=== PATIENT | male | born 1940 | race Caucasian/White ===

== ENCOUNTER 2022-07-16 12:26 | Inpatient (IN) ==
[2022-07-16] MEDS ORDERED: HYDROmorphone 0.5 MG/0.5 ML SYRINGE IV ONE ×2 (12:51→12:57)
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
[2022-07-16 13:12] LABS: POC Calcium, Ionized 1.18 (1.16-1.32); POC Creatinine 1.9 (0.6-1.2); POC Potassium 5.1 (3.3-5.1)
[2022-07-16] MEDS ORDERED: HYDROmorphone 1 MG/ML SYRINGE IV ONE (13:25)
[2022-07-16] MEDS ORDERED: HYDROmorphone PCA 30 MG/30 ML PCA.VIAL IV PRN (13:33)
--- NOTE | 2022-07-16 13:48 | XRay Report ---
CLINICAL INFORMATION: Trauma COMPARISON: 07/13/2022 FINDINGS: Moderately comminuted oblique fracture of the proximal right femoral diaphysis appreciated. Fracture apex is angulated 40 degrees posteriorly. The distal fragment is displaced one shaft width posteriorly with respect to the proximal fragment. Sacroiliac and hip joints are normal in width and alignment without arthritic change. There is no fracture or osseous abnormality. IMPRESSION: Oblique, angulated and displaced fracture of the proximal right femoral diaphysis Interpreted and Authenticated by: Rohit Anglin 07/16/22
--- NOTE | 2022-07-16 13:49 | XRay Report ---
CLINICAL INFORMATION: Trauma COMPARISON: 07/13/2022 FINDINGS: Moderately comminuted oblique fracture of the proximal right femoral diaphysis appreciated. Fracture apex is angulated 40 degrees posteriorly. The distal fragment is displaced one shaft width posteriorly with respect to the proximal fragment. Right hip and right SI joint are unremarkable. Mild patellofemoral and tibiofemoral degeneration noted. There is no fracture or osseous abnormality. IMPRESSION: Oblique, angulated and displaced fracture of the proximal right femoral diaphysis Interpreted and Authenticated by: Rohit Anglin 07/16/22
[2022-07-16 13:55] LABS: Basophils # (Auto) 0.02 K/mcL (0.00-0.30); Basophils % (Auto) 0.4 % (0.0-2.0); Eosinophils # (Auto) 0.01 K/mcL (0.00-0.70); Eosinophils % (Auto) 0.2 % (0.0-7.0); Hematocrit 36.8 % (40.1-51.0); Hemoglobin 12.5 g/dL (13.7-17.5); Lymphocytes # (Auto) 0.85 K/mcL (1.50-4.80); Lymphocytes % (Auto) 15.3 % (15.5-49.0); Mean Cell Volume 92.7 fL (80.0-100.0); Mean Platelet Volume 9.1 fL (8.8-12.5); Monocytes # (Auto) 0.33 K/mcL (0.10-0.90); Monocytes % (Auto) 5.9 % (1.0-12.0); Neutrophils % (Auto) 77.8 % (38.0-78.0); Platelet Count 211 K/mcL (140-440); RBC 3.97 M/mcL (4.63-6.08); Red Cell Distribution Width 13.2 % (11.5-14.5); WBC 5.6 K/mcL (4.5-11.0)
[2022-07-16 14:05] LABS: INR 1.1 (0.9-1.1); Prothrombin Time 14.6 sec (11.9-14.5)
--- NOTE | 2022-07-16 14:28 | XRay Report ---
CLINICAL INFORMATION: Preop COMPARISON: 03/21/2021 TECHNIQUE: Portable FINDINGS: The heart size, mediastinum and pulmonary vessels are unremarkable. The lungs are clear. There are no effusions. The bones and soft tissues are within normal limits. IMPRESSION: Normal chest. Interpreted and Authenticated by: Rohit Anglin 07/16/22
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
[2022-07-16 15:27] LABS: ALT/SGPT 17 U/L (<40); AST/SGOT 27 U/L (<40); Albumin 4.2 gm/dL (3.2-5.2); Albumin/Globulin Ratio 1.8 (1.0-2.3); Alkaline Phosphatase 52 U/L (39-117); Bilirubin,Total 0.2 mg/dL (0.1-1.0); Blood Urea Nitrogen 52 mg/dL (8-23); Calcium 9.6 mg/dL (8.6-10.4); Carbon Dioxide 23 mmol/L (22-30); Chloride 101 mmol/L (96-108); Globulin 2.3 gm/dL (2.2-3.7); Glomerular Filtration Rate 39; Glucose 130 mg/dL (70-105)
[2022-07-16] MEDS ORDERED: IPRATROPIUM/ALBUTEROL 3 ML AMPUL.NEB NEB PRN (15:30)
[2022-07-16] MEDS ORDERED: MAGNESIUM SULFATE 2 GM/50 ML BAG IV PRN (15:30)
[2022-07-16] MEDS ORDERED: DEXTROSE 50% 50 ML VIAL IV PRN (15:30)
[2022-07-16] MEDS ORDERED: DEXTROSE 31 GM ORAL.SUSP PO PRN (15:30)
[2022-07-16] MEDS ORDERED: POLYETHYLENE GLYCOL 3350 17 GM PACKET PO PRN (15:30)
[2022-07-16] MEDS ORDERED: POTASSIUM CHLORIDE 20 MEQ TABLET PO PRN ×2 (15:30)
[2022-07-16] MEDS ORDERED: hydrALAZINE 20 MG/ML VIAL IV PRN (15:30)
[2022-07-16] MEDS ORDERED: ACETAMINOPHEN 325 MG TABLET PO PRN (15:30)
[2022-07-16] MEDS ORDERED: POTASSIUM CHLORIDE 40 MEQ in DEXTROSE 5% IN WATER 500 ML IV PRN (15:30)
[2022-07-16] MEDS ORDERED: ONDANSETRON 4 MG/2 ML VIAL IV PRN (15:30)
[2022-07-16] MEDS ORDERED: SENNOSIDES 1 TABLET PO PRN (15:30)
[2022-07-16] MEDS: morphine 4 MG/ML VIAL IV PRN ×3 (16:19→23:59)
[2022-07-16] MEDS: 0.9 % SODIUM CHLORIDE 1,000 ML IV SCH (16:20)
[2022-07-16] MEDS: INSULIN LISPRO 1 UNIT/0.01 ML UNIT SQ SCH ×2 (17:11→21:30)
[2022-07-16] MEDS ORDERED: ceFAZolin 2 GM in DEXTROSE 5% IN WATER 50 ML IV SCH (18:00)
[2022-07-16] MEDS ORDERED: LORazepam 2 MG/ML VIAL IV ONE (18:21)
[2022-07-16] MEDS ORDERED: LORazepam 2 MG/ML VIAL ONE (18:24)
[2022-07-16] MEDS ORDERED: GADOBENATE DIMEGLUMINE 15 ML/VIAL IV ONE (19:51)
[2022-07-16] MEDS ORDERED: METHOCARBAMOL 1,000 MG/10 ML VIAL ONE (21:13)
[2022-07-16] MEDS: METHOCARBAMOL 1,000 MG/10 ML VIAL IV PRN (21:21)
[2022-07-16] MEDS: 0.9 % SODIUM CHLORIDE 10 ML SYRINGE IV SCH (21:30)
[2022-07-16] MEDS: DOCUSATE SODIUM 100 MG CAPSULE PO SCH (21:30)
[2022-07-16] MEDS: oxyCODONE/APAP 5/325MG TABLET PO PRN (21:33)
[2022-07-17] MEDS: 0.9 % SODIUM CHLORIDE 1,000 ML IV SCH (00:20)
[2022-07-17] MEDS: oxyCODONE/APAP 5/325MG TABLET PO PRN ×3 (01:12→15:39)
[2022-07-17] MEDS: morphine 4 MG/ML VIAL IV PRN ×3 (03:12→13:26)
[2022-07-17] MEDS ORDERED: METHOCARBAMOL 1,000 MG/10 ML VIAL ONE (05:02)
[2022-07-17] MEDS: METHOCARBAMOL 1,000 MG/10 ML VIAL IV PRN ×2 (05:04→13:26)
[2022-07-17] MEDS: 0.9 % SODIUM CHLORIDE 10 ML SYRINGE IV SCH ×3 (05:05→20:38)
--- NOTE | 2022-07-17 06:29 | Orthopedic Progress Note ---
SUBJECTIVE Subjective Patient information: Note initiated : 07/17/22 at 6:26 am Service Date, if different from initiated Date: [] Patient: Amor Rodriguez 82 y/o M admitted on 07/16/22 for right hip fracture. Chief Complaint: [] Constitutional Vitals: Vital Signs Temp Pulse Resp BP Pulse Ox O2 Del Method 99.2 F H 104 H 16 140/63 91 07/17/22 02:28 07/17/22 02:28 07/17/22 02:28 07/17/22 02:28 07/17/22 02:28 07/17/22 02:28 Period Temp Pulse Resp BP Sys/Pillai Pulse Ox O2 Del Method O2 Flow Rate Last 24 Hr 97.0 F-99.7 F 72-104 16-20 109-146/44-121 91-100 Room Air-Room Air Intake and Output 07/16/22 07/17/22 07/17/22 19:59 03:59 11:59 Intake Total 0 1000 150 Output Total 1425 Balance 0 -425 150 Weight 175 lb 172 lb 3.2 oz Intake & Output: Intake & Output 07/16/22 07/17/22 07/17/22 19:59 03:59 11:59 Intake Total 0 1000 150 Output Total 1425 Balance 0 -425 150 Weight 175 lb 172 lb 3.2 oz Intake: IV 1000 Sodium Chloride 0.9% 1,000 ml @ 1000 125 mls/hr IV .Q8H [facility] Rx#: [id number] Oral 0 0 150 Output: Urine Catheter Amount 1425 Other: Percent of Meal Consumed 0% Urine Appearance Clear Uretheral (Mcconnell) Clear Urine Color Yellow Uretheral (Mcconnell) Dark Yellow Urine Odor Uretheral (Mcconnell) Normal OBJ DATA Labs CBC & Chem 7: 07/16/22 13:05 07/16/22 14:31 Labs: Abnormal Lab Results 07/16/22 07/16/22 07/16/22 14:31 13:09 13:05 RBC Hgb Hct POC Hct 38.0 L Lymph % (Auto) Lymph # (Auto) PT 14.6 H POC BUN 62 H BUN 52 H Creatinine 1.6 H POC Creatinine 1.9 H Glucose 130 H POC Glucose 149 H 07/16/22 13:05 RBC 3.97 L Hgb 12.5 L Hct 36.8 L POC Hct Lymph % (Auto) 15.3 L Lymph # (Auto) 0.85 L PT POC BUN BUN Creatinine POC Creatinine Glucose POC Glucose Meds: Medications Acetaminophen (Acetaminophen 325 Mg Tablet) 650 mg PO Q6HP PRN; Protocol PRN Reason: Per Pain Protocol/Fever > 101 Albuterol/Ipratropium (Ipratropium/Albuterol 3 Ml Ampul.Neb) 3 ml NEB Q4HP PRN PRN Reason: Shortness Of Breath Dextrose (Dextrose 50% 50 Ml Vial) 0 ml IV UD PRN PRN Reason: Per Sliding Scale Diagnostic Test (Pha) (Accu-Chek 1 Each Strip) 1 each FS ACHS [facility] Last Admin: 07/16/22 21:30 Dose: 1 each Docusate Sodium (Docusate Sodium 100 Mg Capsule) 100 mg PO BID [facility] Last Admin: 07/16/22 21:30 Dose: Not Given Glucose (Dextrose 31 Gm Oral.Susp) 15 gm PO PRN PRN PRN Reason: Hypoglycemia Hydralazine HCl (Hydralazine 20 Mg/Ml Vial) 0 mg IV Q2HP PRN PRN Reason: Hypertension Potassium Chloride 40 meq/ (Dextrose) 520 mls @ 130 mls/hr IV UD PRN PRN Reason: Potassium < 3 Magnesium Sulfate (Magnesium Sulfate) 2 gm in 50 mls @ 50 mls/hr IV UD PRN PRN Reason: Magnesium </= 1.6 Sodium Chloride (Sodium Chloride 0.9%) 1,000 mls @ 125 mls/hr IV .Q8H [facility] Stop: 07/17/22 07:29 Last Admin: 07/17/22 00:20 Dose: 125 mls/hr Insulin Human Lispro (Insulin Lispro 1 Unit/0.01 Ml Unit) 0 unit SQ ACHS [facility]; Protocol Last Admin: 07/16/22 21:30 Dose: Not Given Methocarbamol (Methocarbamol 1,000 Mg/10 Ml Vial) 750 mg IV Q6HP PRN PRN Reason: Muscle Spasm Last Admin: 07/17/22 05:04 Dose: 750 mg Morphine Sulfate (Morphine 4 Mg/Ml Vial) 0 mg IV Q3HP PRN PRN Reason: Pain Last Admin: 07/17/22 03:12 Dose: 4 mg Ondansetron HCl (Ondansetron 4 Mg/2 Ml Vial) 4 mg IV Q4HP PRN PRN Reason: Nausea And Vomiting Oxycodone/Acetaminophen (Oxycodone/Apap 5/325mg Tablet) 1 tab PO Q4HP PRN PRN Reason: PAIN LEVEL 3-6 Last Admin: 07/17/22 05:04 Dose: 1 tab Polyethylene Glycol (Polyethylene Glycol 3350 17 Gm Packet) 17 gm PO DAILYP PRN PRN Reason: Constipation Potassium Chloride (Potassium Chloride 20 Meq Tablet) 40 meq PO UD PRN PRN Reason: Potssium is 3-3.5 Potassium Chloride (Potassium Chloride 20 Meq Tablet) 40 meq PO UD PRN PRN Reason: Potassium < 3 Senna (Sennosides 1 Tablet) 2 tab PO DAILYP PRN PRN Reason: Constipation Sodium Chloride (0.9 % Sodium Chloride 10 Ml Syringe) 10 ml IV Q8 [facility] Last Admin: 07/17/22 05:05 Dose: 10 ml A/P Assessment and plan (1) Pathologic fx femur: Assessment and plan: Reviewed MRI and review with ortho oncology. Recommend biopsy at time of surgery to dictate mets vs primary tumor as treatment is different. This is outside my scope of practice and recommend transfer. I have discussed this with Hospitalist, patient, patient's daughter. All agree. I will see if there is a traction bow that I can set up here while awaits transfer. Status: Acute Time Spent With Patient Time: Total time spent is greater than 50% in coordination of care (as documented) at patient's floor/unit and/or counseling patient:
--- NOTE | 2022-07-17 07:11 | Internal Med Progress Note ---
SUBJECTIVE Subjective Patient information: Note initiated : 07/17/22 at 7:08 am Service Date, if different from initiated Date: [] Patient: Amor Rodriguez a 82 y/o M admitted on 07/16/22 for right hip fracture. Chief Complaint: [] Interval history: History of present illness: Mr. Rodriguez is a 82 year old M Presents to the ED with right leg pain. Patient states his right leg has been bothering him for the past week or so but especially over the past week. He does not recall hitting it or bumping it on anything. Today when he was in the kitchen with his walker he turned with that and felt a snap in his right thigh. In the ED he was found to have a comminuted and angulated right femur fracture. Patient has no other pains or complaints or recent illnesses. Does have a history of hyponatremia. His renal function on the POC was creatinine 1.9 looking all labs look like his renal function is normal at baseline. Dr. Cortez for orthopedic surgery. 07/17 Patient underwent MRI to evaluate the the likely pathologic fracture and tumor was found. Orthopedic surgery has been in contact with other facilities for transfer. Continue to monitor other labs and vitals. Acute kidney injury is responding to IVF. Patiently leg in traction. Review of Systems: denies headache/fever/chills/nausea/vomiting/chest or abdominal pain/cough/dy spnea/diarrhea. Otherwise see above. Constitutional Vitals: Vital Signs Temp Pulse Resp BP Pulse Ox O2 Del Method 99.2 F H 104 H 16 140/63 91 07/17/22 02:28 07/17/22 02:28 07/17/22 02:28 07/17/22 02:28 07/17/22 02:28 07/17/22 02:28 Period Temp Pulse Resp BP Sys/Pillai Pulse Ox O2 Del Method O2 Flow Rate Last 24 Hr 97.0 F-99.7 F 72-104 16-20 109-146/44-121 91-100 Room Air-Room Air Intake and Output 07/16/22 07/17/22 07/17/22 19:59 03:59 11:59 Intake Total 0 1000 150 Output Total 1425 Balance 0 -425 150 Weight 79.379 kg 78.109 kg Intake & Output: Intake & Output 07/16/22 07/17/22 07/17/22 19:59 03:59 11:59 Intake Total 0 1000 150 Output Total 1425 Balance 0 -425 150 Weight 79.379 kg 78.109 kg Intake: IV 1000 Sodium Chloride 0.9% 1,000 ml @ 1000 125 mls/hr IV .Q8H [facility] Rx#: [id number] Oral 0 0 150 Output: Urine Catheter Amount 1425 Other: Percent of Meal Consumed 0% Urine Appearance Clear Uretheral (M[place]onnell) Clear Urine Color Yellow Uretheral ([place]) Dark Yellow Urine Odor Uretheral ([place]) Normal Exam: General: Alert, Awake, No acute Distress Eyes/N/T: EOMI, Head/Neck: neck supple, CV: RRR, No murmurs, Pulm: Clear b/l, no wheezing/rhonchi/rales Abd: soft, nontender, +BS x4 Ext: no clubbing/cyanosis/edema Neuro: Alert, no focal deficits, moves all extremities, sensations intact bilateral upper lower Skin: warm/dry OBJ DATA Labs CBC & Chem 7: 07/17/22 06:08 07/17/22 06:08 Labs: Abnormal Lab Results 07/16/22 07/16/22 07/16/22 14:31 13:09 13:05 RBC Hgb Hct POC Hct 38.0 L Lymph % (Auto) Lymph # (Auto) PT 14.6 H POC BUN 62 H BUN 52 H Creatinine 1.6 H POC Creatinine 1.9 H Glucose 130 H POC Glucose 149 H 07/16/22 13:05 RBC 3.97 L Hgb 12.5 L Hct 36.8 L POC Hct Lymph % (Auto) 15.3 L Lymph # (Auto) 0.85 L PT POC BUN BUN Creatinine POC Creatinine Glucose POC Glucose Meds: Medications Acetaminophen (Acetaminophen 325 Mg Tablet) 650 mg PO Q6HP PRN; Protocol PRN Reason: Per Pain Protocol/Fever > 101 Albuterol/Ipratropium (Ipratropium/Albuterol 3 Ml Ampul.Neb) 3 ml NEB Q4HP PRN PRN Reason: Shortness Of Breath Dextrose (Dextrose 50% 50 Ml Vial) 0 ml IV UD PRN PRN Reason: Per Sliding Scale Diagnostic Test (Pha) (Accu-Chek 1 Each Strip) 1 each FS ACHS [facility] Last Admin: 07/16/22 21:30 Dose: 1 each Docusate Sodium (Docusate Sodium 100 Mg Capsule) 100 mg PO BID [facility] Last Admin: 07/16/22 21:30 Dose: Not Given Glucose (Dextrose 31 Gm Oral.Susp) 15 gm PO PRN PRN PRN Reason: Hypoglycemia Hydralazine HCl (Hydralazine 20 Mg/Ml Vial) 0 mg IV Q2HP PRN PRN Reason: Hypertension Potassium Chloride 40 meq/ (Dextrose) 520 mls @ 130 mls/hr IV UD PRN PRN Reason: Potassium < 3 Magnesium Sulfate (Magnesium Sulfate) 2 gm in 50 mls @ 50 mls/hr IV UD PRN PRN Reason: Magnesium </= 1.6 Sodium Chloride (Sodium Chloride 0.9%) 1,000 mls @ 125 mls/hr IV .Q8H [facility] Stop: 07/17/22 07:29 Last Admin: 07/17/22 00:20 Dose: 125 mls/hr Insulin Human Lispro (Insulin Lispro 1 Unit/0.01 Ml Unit) 0 unit SQ ACHS [facility]; Protocol Last Admin: 07/16/22 21:30 Dose: Not Given Methocarbamol (Methocarbamol 1,000 Mg/10 Ml Vial) 750 mg IV Q6HP PRN PRN Reason: Muscle Spasm Last Admin: 07/17/22 05:04 Dose: 750 mg Morphine Sulfate (Morphine 4 Mg/Ml Vial) 0 mg IV Q3HP PRN PRN Reason: Pain Last Admin: 07/17/22 03:12 Dose: 4 mg Ondansetron HCl (Ondansetron 4 Mg/2 Ml Vial) 4 mg IV Q4HP PRN PRN Reason: Nausea And Vomiting Oxycodone/Acetaminophen (Oxycodone/Apap 5/325mg Tablet) 1 tab PO Q4HP PRN PRN Reason: PAIN LEVEL 3-6 Last Admin: 07/17/22 05:04 Dose: 1 tab Polyethylene Glycol (Polyethylene Glycol 3350 17 Gm Packet) 17 gm PO DAILYP PRN PRN Reason: Constipation Potassium Chloride (Potassium Chloride 20 Meq Tablet) 40 meq PO UD PRN PRN Reason: Potssium is 3-3.5 Potassium Chloride (Potassium Chloride 20 Meq Tablet) 40 meq PO UD PRN PRN Reason: Potassium < 3 Senna (Sennosides 1 Tablet) 2 tab PO DAILYP PRN PRN Reason: Constipation Sodium Chloride (0.9 % Sodium Chloride 10 Ml Syringe) 10 ml IV Q8 [facility] Last Admin: 07/17/22 05:05 Dose: 10 ml A/P Narrative A/P Narrative: A: *Pathologic right femur fracture: *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 Cortez for orthopedic surgery, working on transfer for -Pain control -IVF, f/u renal fxn, uop -cont home ACEI, stop home hctz -SSI -PT/OT -CM for placement needs -ppx: SCD and postop per Ortho Time Spent With Patient Time: Total time spent is greater than 50% in coordination of care (as documented) at patient's floor/unit and/or counseling patient: Total time spent with greater than 50% in coordination of care (as documented) at patient's floor/unit and/or counseling patient:: 35 - 50 minutes QUALITY Stroke Symptom Onset Unknown: No VTE Deep Vein Thrombosis/Pulmonary Embolism Present on Admission: No
--- NOTE | 2022-07-17 07:52 | Consultation ---
DATE OF CONSULTATION: 07/16/2022 REASON FOR CONSULTATION: Right femur fracture. CONSULTING PROVIDER: Dr. Stoney Brown, ER at [facility]. HISTORY OF PRESENT ILLNESS: The patient is having a right leg, thigh pain for about a week now. He has been to the emergency department for further evaluation and treatment. He is unable to come with a diagnosis. Today, he was going around a corner when he felt a pop in his hip and fell. He was brought to the emergency department for further evaluation and treatment. He only localized pain to the right thigh and hip region. Unable to ambulate. Denies any numbness or tingling to the extremity. Denies hitting his head or loss of consciousness. PAST MEDICAL HISTORY: Significant for diabetes, renal disease, hypertension, history of follicular lymphoma of the right groin, several facial malignancies, sciatica, and dizziness. PAST SURGICAL HISTORY: Right shoulder surgery, radiation treatment to the right groin, cataract, had a cerebrovascular accident several years prior, prostate biopsy. ALLERGIES: NO KNOWN DRUG ALLERGIES. MEDICATIONS: Levothyroxine, pioglitazone, albuterol, Tylenol, lisinopril, statin, folic acid, finasteride, tamsulosin, ibuprofen, lidocaine patches, and carbamazepine. SOCIAL HISTORY: He resides by himself, independent otherwise. REVIEW OF SYSTEMS: A 10-point review of systems negative. PHYSICAL EXAMINATION: GENERAL: Alert, oriented, interactive and appropriate. VITAL SIGNS: He is afebrile with temperature of 98.4, blood pressure 130/85, heart rate 83, 94% on room air. EXTREMITIES: Bilateral lower extremities has some ecchymosis on the left elbow. However, no tenderness or skin breaks noted. Full active range of motion without crepitus or shoulders. Left lower extremity is atraumatic, is able to lie on that side. No obvious deformities. Skin intact. Compartments are soft and the foot is warm and well perfused. Right lower extremity demonstrates shortened and internally rotated extremity. Skin is intact. He does have lidocaine patches on his thigh. ____ he has no joint effusion of the knee. His foot is warm and well perfused with vascular changes throughout the distal third of the tibia into the foot region. IMAGING: His plain radiographs of his hip and femur demonstrate a subtrochanteric femur fracture with a near complete displacement. There is some comminution at the fracture site. There are radiographs from Jan 2022 which appears to have periosteal reaction of the femur with endosteal changes best seen on the lateral. ASSESSMENT AND PLAN: This is an 82-year-old male who has a relatively low mechanism of injury with a subtrochanteric femur fracture. I discussed with him and his several family members as well as treatment options. I discussed there may be a risk of this as a malignancy, given the mechanism of injury. Given the prior radiographs and concern for malignancy do think advanced imaging would be appropriate. He does have prior radiation to the site predisposing of malignancy but low. Discussed treatment is quite different between primary bone maliganancy and mets. Discussed if it is a malignancy, would likely need transfer of care. DLW:jayden Job ID: [id number] Doc ID: [id number] Milka Cortez MD MTDD
[2022-07-17 07:58] LABS: ALT/SGPT 21 U/L (<40); AST/SGOT 43 U/L (<40); Albumin 3.6 gm/dL (3.2-5.2); Albumin/Globulin Ratio 1.4 (1.0-2.3); Alkaline Phosphatase 45 U/L (39-117); Basophils # (Auto) 0.02 K/mcL (0.00-0.30); Basophils % (Auto) 0.2 % (0.0-2.0); Bilirubin,Direct < 0.2 mg/dL (0-0.3); Bilirubin,Total 0.3 mg/dL (0.1-1.0); Blood Urea Nitrogen 41 mg/dL (8-23); Calcium 9.4 mg/dL (8.6-10.4); Carbon Dioxide 22 mmol/L (22-30); Chloride 110 mmol/L (96-108); Eosinophils # (Auto) 0.01 K/mcL (0.00-0.70); Eosinophils % (Auto) 0.1 % (0.0-7.0); Globulin 2.6 gm/dL (2.2-3.7); Glomerular Filtration Rate 50; Glucose 113 mg/dL (70-105); Hematocrit 38.9 % (40.1-51.0); Hemoglobin 12.3 g/dL (13.7-17.5); Lactate Dehydrogenase 278 U/L (135-225); Lymphocytes # (Auto) 0.94 K/mcL (1.50-4.80); Lymphocytes % (Auto) 11.1 % (15.5-49.0); Mean Cell Volume 94.4 fL (80.0-100.0); Mean Corpuscular HGB Conc 31.6 g/dL (31.0-36.0); Mean Platelet Volume 8.7 fL (8.8-12.5); Monocytes # (Auto) 0.63 K/mcL (0.10-0.90); Monocytes % (Auto) 7.5 % (1.0-12.0); Neutrophils % (Auto) 80.6 % (38.0-78.0); Phosphorous 4.5 mg/dL (2.5-4.5); Platelet Count 214 K/mcL (140-440); RBC 4.12 M/mcL (4.63-6.08); Red Cell Distribution Width 13.2 % (11.5-14.5); Triglycerides 72 mg/dL (<150); WBC 8.4 K/mcL (4.5-11.0)
--- NOTE | 2022-07-17 08:16 | Magnetic Resonance Report ---
INDICATION: quesionable malignant fracture- femur COMPARISON: Radiographs 07/16/2022 TECHNIQUE: Multiplanar MRI of the right femur obtained before and after administration of 15 mL of MultiHance intravenous contrast. Imaging was not completed due to patient refusal to complete examination. Image quality rather severely limited by motion artifact. FINDINGS: There is complex comminuted fracture in the proximal third of right femur. This is severely angulated and displaced. There appears to be a pathologic lesion correlating to location of fracture. This fills the medullary portion and measures 11 cm in length. Extensive surrounding soft tissue edema noted, probably related to fracture. An extraosseous component of tumor not excluded. IMPRESSION: Pathologic comminuted fracture of the proximal third of right femur Interpreted and Authenticated by: Estuardo Jessica M.D. 07/17/22
[2022-07-17] MEDS: DOCUSATE SODIUM 100 MG CAPSULE PO SCH ×2 (08:43→20:38)
[2022-07-17] MEDS: FENOFIBRATE 43 MG CAPSULE PO SCH (08:43)
[2022-07-17] MEDS: LISINOPRIL 20 MG TABLET PO SCH (08:43)
[2022-07-17] MEDS: TAMSULOSIN 0.4 MG CAPSULE PO SCH ×2 (08:43→20:37)
[2022-07-17] MEDS: carBAMazepine 200 MG TABLET PO SCH ×2 (08:43→20:37)
[2022-07-17] MEDS: LEVOTHYROXINE 150 MCG TABLET PO SCH (08:44)
[2022-07-17] MEDS: FOLIC ACID 1 MG TABLET PO SCH (08:44)
[2022-07-17] MEDS: LIDOCAINE PATCH TOPICAL SCH (08:44)
[2022-07-17] MEDS: INSULIN LISPRO 1 UNIT/0.01 ML UNIT SQ SCH ×4 (08:47→20:37)
--- NOTE | 2022-07-17 10:59 | Transfer Summary ---
Discharge Provider Provider IMPORTANT FOLLOW-UP INFORMATION FOR PCP: Patient information: Note initiated : 07/17/22 at 10:56 am Service Date, if different from initiated Date: [] Patient: Amor Rodriguez 82 y/o M admitted on 07/16/22 for right hip fracture. Chief Complaint: [] Date of admission: 07/16/22 15:08 Discharge date: 07/18/22 Primary care physician: Amor Hudson Consults: 07/16/22 Consult to Physician [CONS] Stat Comment: Consulting Provider: Tan Koch Reason For Exam: Physician to Consult 07/16/22 13:44 Consult to Physician [CONS] Stat Comment: Consulting Provider: Milka Cortez Reason For Exam: Physician to Consult COURSE Hospital Course Hospital course: History of present illness: Mr. Rodriguez is a 82 year old M Presents to the ED with right leg pain. Patient states his right leg has been bothering him for the past week or so but especially over the past week. He does not recall hitting it or bumping it on anything. Today when he was in the kitchen with his walker he turned with that and felt a snap in his right thigh. In the ED he was found to have a comminuted and angulated right femur fracture. Patient has no other pains or complaints or recent illnesses. Does have a history of hyponatremia. His renal function on the POC was creatinine 1.9 looking all labs look like his renal function is normal at baseline. Dr. Cortez for orthopedic surgery. 07/17 Patient underwent MRI to evaluate the the likely pathologic fracture and tumor was found. Orthopedic surgery has been in contact with other facilities for transfer. Continue to monitor other labs and vitals. Acute kidney injury is responding to IVF. Patiently leg in traction. 07/18 No changes overnight. Awaiting. CT abdomen pelvis showed abnormal prostate but psa unremarkable. Focus of enhancement in the tail the pancreas nonspecific. No other obvious mass lesions. A: *Pathologic right femur fracture: *Medullary lesion right femur 11cm in length: primary vs met *Generalized weakness/deconditioning: *KENDALL on CKD II: *Anemia, chronic: *HTN/HLD: *DM2: *Hypothyroidism: *h/o Chronic hyponatremia: *h/o trigeminal neuralgia: On carbamazepine P: -Transfer for Orthopedic Oncology Discharge diagnosis: Pathologic femur fracture the right pathologic lesion medullary portion of Time Spent with Patient Time attestation: Total time spent providing and/or coordinating discharge services: Time spent: Greater than 30 minutes EXAM Constitutional Vitals: Temp Pulse Resp BP Pulse Ox O2 Del Method 98.1 F 97 H 20 145/63 93 07/17/22 08:00 07/17/22 08:00 07/17/22 08:00 07/17/22 08:00 07/17/22 08:00 07/17/22 08:00 Discharge Data Data Completed and Pending Labs on day of discharge: Labs from last 24 hours 07/17/22 07/17/22 07/16/22 06:08 06:08 14:31 WBC 8.4 RBC 4.12 L Hgb 12.3 L Hct 38.9 L POC Hct MCV 94.4 MCH 29.9 MCHC 31.6 RDW 13.2 Plt Count 214 MPV 8.7 L Immature Gran % (Auto) 0.5 Neut % (Auto) 80.6 H Lymph % (Auto) 11.1 L [place] % (Auto) 7.5 Eos % (Auto) 0.1 Baso % (Auto) 0.2 Lymph # (Auto) 0.94 L [place] # (Auto) 0.63 Eos # (Auto) 0.01 Baso # (Auto) 0.02 Immature Gran # 0.04 Absolute Neutrophils 6.80 PT INR POC Sodium Sodium 142 135 POC Potassium Potassium 4.7 4.7 POC Chloride Chloride 110 H 101 Carbon Dioxide 22 23 POC Total CO2 Anion Gap 10.0 11.0 POC BUN BUN 41 H 52 H Creatinine 1.3 H 1.6 H POC Creatinine GFR Calculation 50 39 Glucose 113 H 130 H POC Glucose Uric Acid 6.0 Calcium 9.4 9.6 POC WB Ioniz Calcium Phosphorus 4.5 Magnesium 2.4 Total Bilirubin 0.3 0.2 Direct Bilirubin < 0.2 GGT 48 AST 43 H 27 ALT 21 17 Alkaline Phosphatase 45 52 Lactate Dehydrogenase 278 H Total Protein 6.2 6.5 Albumin 3.6 4.2 Globulin 2.6 2.3 Albumin/Globulin Ratio 1.4 1.8 Triglycerides 72 07/16/22 07/16/22 07/16/22 13:09 13:05 13:05 WBC RBC Hgb Hct POC Hct 38.0 L MCV MCH MCHC RDW Plt Count MPV Immature Gran % (Auto) Neut % (Auto) Lymph % (Auto) [place] % (Auto) Eos % (Auto) Baso % (Auto) Lymph # (Auto) [place] # (Auto) Eos # (Auto) Baso # (Auto) Immature Gran # Absolute Neutrophils PT 14.6 H INR 1.1 POC Sodium 137 Sodium TNP POC Potassium 5.1 Potassium TNP POC Chloride 107 Chloride TNP Carbon Dioxide TNP POC Total CO2 23.0 Anion Gap TNP POC BUN 62 H BUN TNP Creatinine TNP POC Creatinine 1.9 H GFR Calculation TNP Glucose TNP POC Glucose 149 H Uric Acid Calcium TNP POC WB Ioniz Calcium 1.18 Phosphorus Magnesium Total Bilirubin TNP Direct Bilirubin GGT AST TNP ALT TNP Alkaline Phosphatase TNP Lactate Dehydrogenase Total Protein TNP Albumin TNP Globulin TNP Albumin/Globulin Ratio TNP Triglycerides 07/16/22 13:05 WBC 5.6 RBC 3.97 L Hgb 12.5 L Hct 36.8 L POC Hct MCV 92.7 MCH 31.5 MCHC 34.0 RDW 13.2 Plt Count 211 MPV 9.1 Immature Gran % (Auto) 0.4 Neut % (Auto) 77.8 Lymph % (Auto) 15.3 L [place] % (Auto) 5.9 Eos % (Auto) 0.2 Baso % (Auto) 0.4 Lymph # (Auto) 0.85 L [place] # (Auto) 0.33 Eos # (Auto) 0.01 Baso # (Auto) 0.02 Immature Gran # 0.02 Absolute Neutrophils 4.33 PT INR POC Sodium Sodium POC Potassium Potassium POC Chloride Chloride Carbon Dioxide POC Total CO2 Anion Gap POC BUN BUN Creatinine POC Creatinine GFR Calculation Glucose POC Glucose Uric Acid Calcium POC WB Ioniz Calcium Phosphorus Magnesium Total Bilirubin Direct Bilirubin GGT AST ALT Alkaline Phosphatase Lactate Dehydrogenase Total Protein Albumin Globulin Albumin/Globulin Ratio Triglycerides Discharge Plan Patient/Caregiver Discharge Instructions Prescriptions: No Action levothyroxine 150 mcg tablet 150 mcg PO QDAY Qty: 90 3RF pioglitazone 30 mg tablet 30 mg PO QDAY Qty: 90 3RF carbamazepine 200 mg tablet 200 mg PO BID Qty: 180 2RF lisinopril-hydrochlorothiazide 20-12.5 mg tablet 1 tab PO QDAY Qty: 90 0RF (DME) blood sugar diagnostic, disc strip See Dose Instructions .ROUTE .MEDSUPPLY Rx Instructions: As directed albuterol sulfate 90 mcg/actuation HFA aerosol inhaler 2 puff INHALATION Q4-6HP PRN (Reason: ASTHMA) Qty: 18 3RF acetaminophen 500 mg capsule 500 mg PO Q6H PRN (Reason: Pain, Mild) fenofibrate nanocrystallized 145 mg tablet 145 mg PO QDAY Qty: 90 3RF atorvastatin 80 mg tablet 80 mg PO QHS erythromycin 5 mg/gram (0.5 %) ointment 1 applic ophthalmic (eye) QDAY folic acid 1 mg tablet 1 mg PO QDAY ibuprofen 800 mg tablet 800 mg PO TID PRN (Reason: pain) Qty: 30 0RF lidocaine 5 % adhesive patch,medicated 1 patch topical QDAY Qty: 15 0RF Rx Instructions: leave on most painful area for up to 12 hrs tamsulosin 0.4 mg capsule 0.4 mg PO BID Rx Instructions: Take at 9:30 am at least 30 minutes after meal and one at night. triamterene-hydrochlorothiazid 37.5-25 mg capsule 1 cap PO QDAY finasteride [Proscar] 5 mg tablet 5 mg PO QDAY Qty: 90 3RF Follow Up Plan Follow up with: Amor Hudson MD [Primary Care Provider] - Patient Disposition: [facility] Prognosis: Fair Discharge Orders: Discharge Order (Routine); Ordered 07/18/22 Ordered By: Tan Koch [facility] VTE Deep Vein Thrombosis/Pulmonary Embolism Present on Admission: No
[2022-07-17] MEDS ORDERED: 0.9 % SODIUM CHLORIDE 1,000 ML IV ONE (12:17)
[2022-07-17 14:23] LABS: Prostate Specific Antigen 3.49 ng/mL (<6.50)
[2022-07-17] MEDS ORDERED: LORazepam 2 MG/ML VIAL IV ONE (15:30)
[2022-07-17] MEDS ORDERED: IOPAMIDOL 100 ML BOTTLE IV ONE (16:08)
[2022-07-17] MEDS ORDERED: morphine 4 MG/ML VIAL IV PRN (16:30)
[2022-07-17] MEDS ORDERED: oxyCODONE HCL 5 MG TABLET PO ONE (17:16)
[2022-07-17] MEDS ORDERED: oxyCODONE HCL 5 MG TABLET PO PRN (18:51)
--- NOTE | 2022-07-17 19:18 | Orthopedic Progress Note ---
SUBJECTIVE Subjective Patient information: Note initiated : 07/17/22 at 7:10 pm Service Date, if different from initiated Date: [] Patient: Amor Rodriguez 82 y/o M admitted on 07/16/22 for right hip fracture. Chief Complaint: [] Constitutional Vitals: Vital Signs Temp Pulse Resp BP Pulse Ox O2 Del Method 99 F 102 H 18 124/55 92 07/17/22 16:00 07/17/22 16:00 07/17/22 16:00 07/17/22 16:00 07/17/22 16:00 07/17/22 16:00 Period Temp Pulse Resp BP Sys/Pillai Pulse Ox O2 Del Method O2 Flow Rate Last 24 Hr 97.5 F-99.7 F 97-104 16-20 124-145/55-69 91-99 Room Air-Room Air Intake and Output 07/17/22 07/17/22 07/17/22 03:59 11:59 19:59 Intake Total 1000 1910 420 Output Total 1425 1000 Balance -425 1910 -580 Weight 172 lb 3.2 oz Intake & Output: Intake & Output 07/17/22 07/17/22 07/17/22 03:59 11:59 19:59 Intake Total 1000 1910 420 Output Total 1425 1000 Balance -425 1910 -580 Weight 172 lb 3.2 oz Intake: IV 1000 1000 Sodium Chloride 0.9% 1,000 ml @ 1000 1000 125 mls/hr IV .Q8H [facility] Rx#: [id number] Oral 0 910 420 Output: Urine Catheter Amount 1425 1000 Other: Meal Lunch Percent of Meal Consumed 50% Urine Appearance Clear Uretheral (Mcconnell) Clear Urine Color Yellow Bright Yellow Uretheral (Mcconnell) Yellow Urine Odor Normal OBJ DATA Labs CBC & Chem 7: 07/17/22 06:08 07/17/22 06:08 Labs: Abnormal Lab Results 07/17/22 07/17/22 07/17/22 12:50 06:08 06:08 RBC 4.12 L Hgb 12.3 L Hct 38.9 L POC Hct MPV 8.7 L Neut % (Auto) 80.6 H Lymph % (Auto) 11.1 L Lymph # (Auto) 0.94 L PT Chloride 110 H POC BUN BUN 41 H Creatinine 1.3 H POC Creatinine Glucose 113 H POC Glucose AST 43 H Lactate Dehydrogenase 278 H C-Reactive Protein 15.50 H 07/16/22 07/16/22 07/16/22 14:31 13:09 13:05 RBC Hgb Hct POC Hct 38.0 L MPV Neut % (Auto) Lymph % (Auto) Lymph # (Auto) PT 14.6 H Chloride POC BUN 62 H BUN 52 H Creatinine 1.6 H POC Creatinine 1.9 H Glucose 130 H POC Glucose 149 H AST Lactate Dehydrogenase C-Reactive Protein 07/16/22 13:05 RBC 3.97 L Hgb 12.5 L Hct 36.8 L POC Hct MPV Neut % (Auto) Lymph % (Auto) 15.3 L Lymph # (Auto) 0.85 L PT Chloride POC BUN BUN Creatinine POC Creatinine Glucose POC Glucose AST Lactate Dehydrogenase C-Reactive Protein Meds: Medications Acetaminophen (Acetaminophen 325 Mg Tablet) 650 mg PO Q6HP PRN; Protocol PRN Reason: Per Pain Protocol/Fever > 101 Acetaminophen (Acetaminophen 500 Mg Tablet) 1,000 mg PO Q8 [facility]; Protocol Albuterol/Ipratropium (Ipratropium/Albuterol 3 Ml Ampul.Neb) 3 ml NEB Q4HP PRN PRN Reason: Shortness Of Breath Atorvastatin Calcium (Atorvastatin 40 Mg Tablet) 80 mg PO QHS [facility] Carbamazepine (Carbamazepine 200 Mg Tablet) 200 mg PO BID [facility] Last Admin: 07/17/22 08:43 Dose: 200 mg Dextrose (Dextrose 50% 50 Ml Vial) 0 ml IV UD PRN PRN Reason: Per Sliding Scale Diagnostic Test (Pha) (Accu-Chek 1 Each Strip) 1 each FS ACHS [facility] Last Admin: 07/17/22 17:18 Dose: 1 each Docusate Sodium (Docusate Sodium 100 Mg Capsule) 100 mg PO BID [facility] Last Admin: 07/17/22 08:43 Dose: 100 mg Fenofibrate (Fenofibrate 43 Mg Capsule) 129 mg PO QDAY [facility] Last Admin: 07/17/22 08:43 Dose: 129 mg Folic Acid (Folic Acid 1 Mg Tablet) 1 mg PO QDAY [facility] Last Admin: 07/17/22 08:44 Dose: 1 mg Glucose (Dextrose 31 Gm Oral.Susp) 15 gm PO PRN PRN PRN Reason: Hypoglycemia Heparin Sodium (Porcine) (Heparin 5,000 Unit/Ml Vial) 5,000 unit SQ Q12 [facility] Hydralazine HCl (Hydralazine 20 Mg/Ml Vial) 0 mg IV Q2HP PRN PRN Reason: Hypertension Potassium Chloride 40 meq/ (Dextrose) 520 mls @ 130 mls/hr IV UD PRN PRN Reason: Potassium < 3 Magnesium Sulfate (Magnesium Sulfate) 2 gm in 50 mls @ 50 mls/hr IV UD PRN PRN Reason: Magnesium </= 1.6 Sodium Chloride (Sodium Chloride 0.9%) 1,000 mls @ 75 mls/hr IV .[id number] Stop: 07/18/22 01:36 Last Admin: 07/17/22 16:20 Dose: 75 mls/hr Insulin Human Lispro (Insulin Lispro 1 Unit/0.01 Ml Unit) 0 unit SQ [facility]; Protocol Last Admin: 07/17/22 17:19 Dose: Not Given Levothyroxine Sodium (Levothyroxine 150 Mcg Tablet) 150 mcg PO QAMAC [facility] Last Admin: 07/17/22 08:44 Dose: 150 mcg Lidocaine (Lidocaine Patch) 1 patch TOPICAL QDAY [facility] Last Admin: 07/17/22 08:44 Dose: 1 patch Lisinopril (Lisinopril 20 Mg Tablet) 20 mg PO DAILY [facility] Last Admin: 07/17/22 08:43 Dose: 20 mg Methocarbamol (Methocarbamol 1,000 Mg/10 Ml Vial) 750 mg IV Q6HP PRN PRN Reason: Muscle Spasm Last Admin: 07/17/22 13:26 Dose: 750 mg Morphine Sulfate (Morphine 2 Mg/Ml Vial) 2 mg IV Q3 PRN; Protocol PRN Reason: Per Pain Protocol Ondansetron HCl (Ondansetron 4 Mg/2 Ml Vial) 4 mg IV Q4HP PRN PRN Reason: Nausea And Vomiting Oxycodone HCl (Oxycodone Hcl 5 Mg Tablet) 5 - 10 mg PO Q4HP PRN; Protocol PRN Reason: Per Pain Protocol Polyethylene Glycol (Polyethylene Glycol 3350 17 Gm Packet) 17 gm PO DAILYP PRN PRN Reason: Constipation Potassium Chloride (Potassium Chloride 20 Meq Tablet) 40 meq PO UD PRN PRN Reason: Potssium is 3-3.5 Potassium Chloride (Potassium Chloride 20 Meq Tablet) 40 meq PO UD PRN PRN Reason: Potassium < 3 Senna (Sennosides 1 Tablet) 2 tab PO DAILYP PRN PRN Reason: Constipation Sodium Chloride (0.9 % Sodium Chloride 10 Ml Syringe) 10 ml IV Q8 [facility] Last Admin: 07/17/22 14:24 Dose: 10 ml Tamsulosin HCl (Tamsulosin 0.4 Mg Capsule) 0.4 mg PO BID [facility] Last Admin: 07/17/22 08:43 Dose: 0.4 mg A/P Assessment and plan (1) Pathologic fx femur: Assessment and plan: Discussed transfer with provider at . Will accept patient once bed available. Possible 24-48 hours. I did discuss with patient this am regarding traction which will be more functional for frequent turns and preventing bed sores and improve pain control with traction. Discussed what this would entail regarding the traction pin/bow set up and how it works. Patient agrees. Sterilly prepped the knee with betadine. Injected 1% lidocaine without epinephrine 1 finger breath proximal to the superior border of the patella on the medial and lateral aspect. Once set up, placed a 0.54 wire across the femur with attemp to stay a bit anterior aspect of the femur. The knee was flexed to about [address] the traction bow and 8 pounds of traction which patient tolerated well. Was completed without complication. Pin site was dressed with xeroform and gauze. After discussion with ortho oncology at - labs ordered and CT chest/abd/pelvis ordered as well. These will be sent once complete -Pain is better controlled with traction in place. Status: Acute Time Spent With Patient Time: Total time spent is greater than 50% in coordination of care (as documented) at patient's floor/unit and/or counseling patient:
[2022-07-17] MEDS: HEPARIN 5,000 UNIT/ML VIAL SQ SCH (20:37)
[2022-07-17] MEDS: ATORVASTATIN 40 MG TABLET PO SCH (20:38)
[2022-07-17] MEDS: ACETAMINOPHEN 500 MG TABLET PO SCH (22:09)
[2022-07-18] MEDS: ACETAMINOPHEN 500 MG TABLET PO SCH ×3 (05:03→21:18)
[2022-07-18] MEDS: 0.9 % SODIUM CHLORIDE 10 ML SYRINGE IV SCH ×4 (05:04→20:59)
[2022-07-18] MEDS: LEVOTHYROXINE 150 MCG TABLET PO SCH (07:15)
[2022-07-18] MEDS: INSULIN LISPRO 1 UNIT/0.01 ML UNIT SQ SCH ×4 (07:18→20:45)
--- NOTE | 2022-07-18 07:42 | Internal Med Progress Note ---
SUBJECTIVE Subjective Patient information: Note initiated : 07/18/22 at 7:40 am Service Date, if different from initiated Date: [] Patient: Amor Rodriguez a 82 y/o M admitted on 07/16/22 for right hip fracture. Chief Complaint: [] Interval history: History of present illness: Mr. Rodriguez is a 82 year old M Presents to the ED with right leg pain. Patient states his right leg has been bothering him for the past week or so but especially over the past week. He does not recall hitting it or bumping it on anything. Today when he was in the kitchen with his walker he turned with that and felt a snap in his right thigh. In the ED he was found to have a comminuted and angulated right femur fracture. Patient has no other pains or complaints or recent illnesses. Does have a history of hyponatremia. His renal function on the POC was creatinine 1.9 looking all labs look like his renal function is normal at baseline. Dr. Cortez for orthopedic surgery. 07/17 Patient underwent MRI to evaluate the the likely pathologic fracture and tumor was found. Orthopedic surgery has been in contact with other facilities for transfer. Continue to monitor other labs and vitals. Acute kidney injury is responding to IVF. Patiently leg in traction. 07/18 No changes overnight. Awaiting. CT abdomen pelvis showed abnormal prostate potential malignancy. Focus of enhancement in the tail the pancreas nonspecific. No other obvious mass lesions. Review of Systems: denies headache/fever/chills/nausea/vomiting/chest or abdominal pain/cough/dysp jose/diarrhea. Otherwise see above. Constitutional Vitals: Vital Signs Temp Pulse Resp BP Pulse Ox O2 Del Method 99.5 F H 89 16 125/52 90 07/18/22 05:04 07/18/22 05:04 07/18/22 05:04 07/18/22 05:04 07/18/22 05:04 07/18/22 05:04 Period Temp Pulse Resp BP Sys/Pillai Pulse Ox O2 Del Method O2 Flow Rate Last 24 Hr 98.1 F-99.5 F 89-102 16-20 116-145/52-63 90-99 Room Air-Room Air Intake and Output 07/17/22 07/18/22 07/18/22 19:59 03:59 11:59 Intake Total 420 480 Output Total 1000 950 Balance -580 -470 Intake & Output: Intake & Output 07/17/22 07/18/22 07/18/22 19:59 03:59 11:59 Intake Total 420 480 Output Total 1000 950 Balance -580 -470 Intake: Oral 420 480 Output: Urine Catheter Amount 1000 950 Other: Meal Lunch Percent of Meal Consumed 50% Urine Appearance Clear Uretheral (Mcconnell) Clear Clear Urine Color Bright Yellow Yellow Uretheral (Mcconnell) Dark Yellow Bright Yellow Urine Odor Normal Uretheral (Mcconnell) Normal Exam: General: Alert, Awake, No acute Distress Eyes/N/T: EOMI, Head/Neck: neck supple, CV: RRR, No murmurs, Pulm: Clear b/l, no wheezing/rhonchi/rales Abd: soft, nontender, +BS x4 Ext: no clubbing/cyanosis/edema. Right leg in traction Neuro: Alert, no focal deficits, moves all extremities, sensations intact bilateral upper lower Skin: warm/dry OBJ DATA Labs CBC & Chem 7: 07/17/22 06:08 07/18/22 05:45 Labs: Abnormal Lab Results 07/17/22 07/17/22 07/17/22 12:50 06:08 06:08 RBC 4.12 L Hgb 12.3 L Hct 38.9 L POC Hct MPV 8.7 L Neut % (Auto) 80.6 H Lymph % (Auto) 11.1 L Lymph # (Auto) 0.94 L PT Chloride 110 H POC BUN BUN 41 H Creatinine 1.3 H POC Creatinine Glucose 113 H POC Glucose AST 43 H Lactate Dehydrogenase 278 H C-Reactive Protein 15.50 H 07/16/22 07/16/22 07/16/22 14:31 13:09 13:05 RBC Hgb Hct POC Hct 38.0 L MPV Neut % (Auto) Lymph % (Auto) Lymph # (Auto) PT 14.6 H Chloride POC BUN 62 H BUN 52 H Creatinine 1.6 H POC Creatinine 1.9 H Glucose 130 H POC Glucose 149 H AST Lactate Dehydrogenase C-Reactive Protein 07/16/22 13:05 RBC 3.97 L Hgb 12.5 L Hct 36.8 L POC Hct MPV Neut % (Auto) Lymph % (Auto) 15.3 L Lymph # (Auto) 0.85 L PT Chloride POC BUN BUN Creatinine POC Creatinine Glucose POC Glucose AST Lactate Dehydrogenase C-Reactive Protein Meds: Medications Acetaminophen (Acetaminophen 325 Mg Tablet) 650 mg PO Q6HP PRN; Protocol PRN Reason: Per Pain Protocol/Fever > 101 Acetaminophen (Acetaminophen 500 Mg Tablet) 1,000 mg PO Q8 [facility]; Protocol Last Admin: 07/18/22 05:03 Dose: 1,000 mg Albuterol/Ipratropium (Ipratropium/Albuterol 3 Ml Ampul.Neb) 3 ml NEB Q4HP PRN PRN Reason: Shortness Of Breath Atorvastatin Calcium (Atorvastatin 40 Mg Tablet) 80 mg PO QHS [facility] Last Admin: 07/17/22 20:38 Dose: 80 mg Carbamazepine (Carbamazepine 200 Mg Tablet) 200 mg PO BID [facility] Last Admin: 07/17/22 20:37 Dose: 200 mg Dextrose (Dextrose 50% 50 Ml Vial) 0 ml IV UD PRN PRN Reason: Per Sliding Scale Diagnostic Test (Pha) (Accu-Chek 1 Each Strip) 1 each FS ACHS [facility] Last Admin: 07/18/22 07:16 Dose: 1 each Docusate Sodium (Docusate Sodium 100 Mg Capsule) 100 mg PO BID [facility] Last Admin: 07/17/22 20:38 Dose: 100 mg Fenofibrate (Fenofibrate 43 Mg Capsule) 129 mg PO QDAY [facility] Last Admin: 07/17/22 08:43 Dose: 129 mg Folic Acid (Folic Acid 1 Mg Tablet) 1 mg PO QDAY [facility] Last Admin: 07/17/22 08:44 Dose: 1 mg Glucose (Dextrose 31 Gm Oral.Susp) 15 gm PO PRN PRN PRN Reason: Hypoglycemia Heparin Sodium (Porcine) (Heparin 5,000 Unit/Ml Vial) 5,000 unit SQ Q12 [facility] Last Admin: 07/17/22 20:37 Dose: 5,000 unit Hydralazine HCl (Hydralazine 20 Mg/Ml Vial) 0 mg IV Q2HP PRN PRN Reason: Hypertension Potassium Chloride 40 meq/ (Dextrose) 520 mls @ 130 mls/hr IV UD PRN PRN Reason: Potassium < 3 Magnesium Sulfate (Magnesium Sulfate) 2 gm in 50 mls @ 50 mls/hr IV UD PRN PRN Reason: Magnesium </= 1.6 Insulin Human Lispro (Insulin Lispro 1 Unit/0.01 Ml Unit) 0 unit SQ [facility]; Protocol Last Admin: 07/18/22 07:18 Dose: Not Given Levothyroxine Sodium (Levothyroxine 150 Mcg Tablet) 150 mcg PO QAMAC [facility] Last Admin: 07/18/22 07:15 Dose: 150 mcg Lidocaine (Lidocaine Patch) 1 patch TOPICAL QDAY [facility] Last Admin: 07/17/22 08:44 Dose: 1 patch Lisinopril (Lisinopril 20 Mg Tablet) 20 mg PO DAILY [facility] Last Admin: 07/17/22 08:43 Dose: 20 mg Methocarbamol (Methocarbamol 1,000 Mg/10 Ml Vial) 750 mg IV Q6HP PRN PRN Reason: Muscle Spasm Last Admin: 07/17/22 13:26 Dose: 750 mg Morphine Sulfate (Morphine 2 Mg/Ml Vial) 2 mg IV Q3 PRN; Protocol PRN Reason: Per Pain Protocol Ondansetron HCl (Ondansetron 4 Mg/2 Ml Vial) 4 mg IV Q4HP PRN PRN Reason: Nausea And Vomiting Oxycodone HCl (Oxycodone Hcl 5 Mg Tablet) 5 - 10 mg PO Q4HP PRN; Protocol PRN Reason: Per Pain Protocol Polyethylene Glycol (Polyethylene Glycol 3350 17 Gm Packet) 17 gm PO DAILYP PRN PRN Reason: Constipation Potassium Chloride (Potassium Chloride 20 Meq Tablet) 40 meq PO UD PRN PRN Reason: Potssium is 3-3.5 Potassium Chloride (Potassium Chloride 20 Meq Tablet) 40 meq PO UD PRN PRN Reason: Potassium < 3 Senna (Sennosides 1 Tablet) 2 tab PO DAILYP PRN PRN Reason: Constipation Sodium Chloride (0.9 % Sodium Chloride 10 Ml Syringe) 10 ml IV Q8 [facility] Last Admin: 07/18/22 05:04 Dose: 10 ml Tamsulosin HCl (Tamsulosin 0.4 Mg Capsule) 0.4 mg PO BID [facility] Last Admin: 07/17/22 20:37 Dose: 0.4 mg A/P Narrative A/P Narrative: A: *Pathologic right femur fracture: *Medullary lesion right femur 11cm in length: primary vs met *Generalized weakness/deconditioning: -Ambulates with walker *KENDALL on CKD II: 1.6>1.3>1.3 *Anemia, chronic: *HTN/HLD: *DM2: *Hypothyroidism: *h/o Chronic hyponatremia: pt is on hctz *h/o trigeminal neuralgia: On carbamazepine P: -Dr. Cortez for orthopedic surgery, working on transfer -Pain control -IVF, f/u renal fxn, uop -hold home ACEI for now, stop home hctz -SSI -PT/OT -CM for placement needs -ppx: SCD and postop per Ortho Time Spent With Patient Time: Total time spent is greater than 50% in coordination of care (as documented) at patient's floor/unit and/or counseling patient: Total time spent with greater than 50% in coordination of care (as documented) at patient's floor/unit and/or counseling patient:: 35 - 50 minutes QUALITY Stroke Symptom Onset Unknown: No VTE Deep Vein Thrombosis/Pulmonary Embolism Present on Admission: No
[2022-07-18 07:48] LABS: Blood Urea Nitrogen 43 mg/dL (8-23); Calcium 8.8 mg/dL (8.6-10.4); Carbon Dioxide 20 mmol/L (22-30); Chloride 105 mmol/L (96-108); Glomerular Filtration Rate 50; Glucose 133 mg/dL (70-105)
--- NOTE | 2022-07-18 08:40 | Cat Scan Report ---
INDICATION: eval for tumors COMPARISON: FINDINGS: Axial contrast enhanced CT of the chest, abdomen and pelvis with coronal and sagittal reformats using nonionic low osmolar intravenous contrast Chest CT: Evaluation the mediastinum shows no evidence of adenopathy. There is no pericardial or pleural effusion. There is fluid within the esophagus consistent with gastroesophageal reflux. Coronary atheromatous disease is evident. There is diffuse emphysematous disease throughout the lungs. There is an infiltrate in the left lower lobe. Calcified granulomas seen in the superior aspect of the right lower lobe. No acute bony findings seen in the chest. There's been a right shoulder arthroplasty. The region of the glenoid is abnormal showing sclerosis and bony lysis. Abdomen and pelvis CT: Liver shows diffuse steatosis. Spleen, adrenal glands, kidneys show no acute findings. There's been a cholecystectomy. The pancreas shows a small focus of enhancement in the tail measuring 1 cm. No abnormal biliary ductal dilatation. No acute gastric abnormality. Aorta and inferior vena cava are patent. There is extensive atheromatous disease, however. Several small shotty appearing lymph nodes are seen in the retroperitoneum. The appendix is normal. No acute intestinal abnormalities are seen. Prostate is abnormally enlarged and causing mass effect on the urinary bladder. There is diffuse heterogeneous enhancement as well. Mcconnell catheter is noted. There is bladder wall thickening. There is a comminuted fracture of the right proximal femur. This appears to be a pathologic fracture. It's unclear whether the surrounding soft tissues containing tumor or hematoma or both. The area of the injury is partially imaged on this study. IMPRESSION: Comminuted fracture of the right proximal femur which is suspicious for pathologic fracture. Abnormal prostate, prostate malignancy is possible. Focus of enhancement in the tail of the pancreas, nonspecific. I Recommend a 1 month follow-up pancreas protocol CT Small infiltrate in the left lower lobe Atheromatous disease Abnormal appearance of the right scapula adjacent to a shoulder arthroplasty. This is partially imaged. I suspect this is probably degeneration adjacent to the arthroplasty Interpreted and Authenticated by: Ben Schultz M.D. 07/18/22
[2022-07-18] MEDS: HEPARIN 5,000 UNIT/ML VIAL SQ SCH ×2 (09:27→20:50)
[2022-07-18] MEDS: FENOFIBRATE 43 MG CAPSULE PO SCH (09:27)
[2022-07-18] MEDS: FOLIC ACID 1 MG TABLET PO SCH (09:27)
[2022-07-18] MEDS: DOCUSATE SODIUM 100 MG CAPSULE PO SCH ×2 (09:27→20:51)
[2022-07-18] MEDS: TAMSULOSIN 0.4 MG CAPSULE PO SCH ×2 (09:27→20:51)
[2022-07-18] MEDS: carBAMazepine 200 MG TABLET PO SCH ×2 (09:28→21:19)
[2022-07-18] MEDS: LIDOCAINE PATCH TOPICAL SCH (09:28)
[2022-07-18] MEDS: LISINOPRIL 20 MG TABLET PO SCH (09:29)
--- NOTE | 2022-07-18 18:25 | EKG ---
Merged With [facility] Test Date: 2022-07-16 Pat Name: Amor Rodriguez Department: ED Room: Gender: Male Lead Project Manager: : 1940 Requested By: Sotney Brown Order Number: [id number] Reading MD: Adriano Ribeiro Measurements Intervals [place] Rate: 71 P: 67 [place]: 161 QRS: 62 QRSD: 90 T: 48 QT: 373 QTc: 405 Interpretive Statements Sinus rhythm Electronically Signed On 07-18-2022 18:24:56 PST by Adriano Ribeiro /store/[id number]
[2022-07-18] MEDS: ATORVASTATIN 40 MG TABLET PO SCH (20:51)
[2022-07-18] MEDS: morphine 2 MG/ML VIAL IV PRN (20:58)
[2022-07-18] MEDS: METHOCARBAMOL 1,000 MG/10 ML VIAL IV PRN (22:32)
[2022-07-19] MEDS: morphine 2 MG/ML VIAL IV PRN (00:49)
[2022-07-19 17:45] LABS: Albumin PEP 3.26 gm/dL (3.10-4.70); Albumin/Globulin Ratio PEP 1.1 RATIO (0.9-1.7); Alpha-1-Globulins 0.39 gm/dL (0.10-0.50); Beta Globulins 0.88 gm/dL (0.60-1.20); Gamma Globulins 0.87 gm/dL (0.50-1.70); Globulin PEP 2.9 gm/dL (2.4-3.6); Immunoglobulin A 126 mg/dL (70-400); Immunoglobulin G 760 mg/dL (700-1600); Immunoglobulin M 68.7 mg/dL (40.0-230.0); Total Protein PEP 6.2 gm/dL (5.9-8.4)
[2022-07-24 18:56] LABS: Albumin 55 %; Alpha-1-Globulin 4 %; Alpha-2-Globulin 11 %; Creatinine, Random Urine 94 mg/dL (20-320); Gamma Globulin 17 %; Pro/Creat Ratio 181 mg/g creat (25-148); Protein Total Random Urine 17 mg/dL (5-25)
== END 2022-07-19 01:00 | disposition short-term general hospital (02) | DRG 543 ==
LOC: ED 12:26 → MEDSUR 15:08
PROVIDERS: ADMIT Internal Medicine; ATTEND Internal Medicine